=== PATIENT | female | born 1985 | race Asian ===

== ENCOUNTER 2017-12-17 10:00 | Observation (INO) | payer OTHER | END 2017-12-17 11:30 | disposition home or self-care (01) | LOC: SPU 10:00 | PROVIDERS: ADMIT Obstetrics & Gynecology; ATTEND Obstetrics & Gynecology | DX: O26.852 Spotting complicating pregnancy, second trimester (principal); O26.892 Other specified pregnancy related conditions, second trimester; R10.9 Unspecified abdominal pain; Z3A.23 23 weeks gestation of pregnancy | CPT/HCPCS: G0378 ==

== ENCOUNTER 2018-04-04 15:17 | Inpatient (IN) | payer OTHER ==
[~2018-04-04] VITALS: Ht 160 cm; Wt 95.3 kg
[2018-04-05] MEDS ORDERED: LR 1,000 ML IV ONE (00:27)
[2018-04-05] MEDS ORDERED: TERBUTALINE SULFATE 1 MG/ML VIAL SUBCUT ONE (00:30)
[2018-04-05] MEDS ORDERED: NALBUPHINE HCL 10 MG/ML AMP IVP PRN (00:30)
[2018-04-05] MEDS ORDERED: DINOPROSTONE 10 MG SUPP VG ONE (00:30)
[2018-04-05] MEDS: LR 1,000 ML IV SCH ×2 (00:45→07:29)
[2018-04-05 00:46] VITALS: BP_SYST 121
[2018-04-05 01:11] LABS: BASOPHILS % (AUTO) 0.2 % (0.0-2.0); EOSINOPHILS # (AUTO) 0.1 K/uL (0.0-0.4); EOSINOPHILS % (AUTO) 1.8 % (0.0-4.0); HEMATOCRIT 36.4 % (36-48); HEMOGLOBIN 12.5 g/dL (12.0-16.0); LYMPHOCYTES # (AUTO) 1.4 K/uL (1.0-5.5); LYMPHOCYTES % (AUTO) 19.1 % (20.5-51.5); MEAN CORPUSCULAR HEMOGLOBIN 29 pg (27-31); MEAN CORPUSCULAR HGB CONC 34 % (32-36); MEAN CORPUSCULAR VOLUME 83 fL (79.0-98.0); MONOCYTES # (AUTO) 0.7 K/uL (0.0-1.0); MONOCYTES % (AUTO) 10.2 % (1.7-9.3); NEUTROPHILS % (AUTO) 68.7 % (40.0-70.0); PLATELET COUNT (AUTO) 257 K/uL (130-430); RED BLOOD CELL COUNT(AUTO) 4.37 MIL/uL (4.2-6.2); RED CELL DISTRIBUTION WIDTH 12.8 % (9.0-15.0); WHITE BLOOD COUNT (AUTO) 7.2 K/uL (4.8-10.8)
[2018-04-05] MEDS ORDERED: MISOPROSTOL 100 MCG TABLET (CYTOTEC) VG PRN (12:15)
[2018-04-06] MEDS: LR 1,000 ML IV SCH ×2 (00:27→14:39)
[2018-04-06] MEDS: OXYTOCIN/0.9 % SODIUM CHLORIDE 1,000 ML IV SCH ×2 (00:48→23:21)
[2018-04-06] MEDS ORDERED: fentaNYL CITRATE/PF 100 MCG/2 ML AMP ONE (16:27)
[2018-04-06] MEDS ORDERED: ROPIVACAINE 0.2% 100 ML ONE (16:28)
[2018-04-06] MEDS ORDERED: LR 500 ML IV ONE (18:02)
[2018-04-06] MEDS ORDERED: fentaNYL CITRATE/PF 100 MCG/2 ML AMP EP ONE (18:15)
[2018-04-06] MEDS ORDERED: ePHEDrine sulfate 50 MG/ML VIAL IVP PRN (18:15)
[2018-04-06] MEDS ORDERED: FENT2mCg/mL-ROPIVA0.2%/NS EPID 100 ML EP SCH (18:15)
[2018-04-06] MEDS: CLINDAMYCIN 900 MG in D5W 100 ML IV SCH (20:50)
[2018-04-06] MEDS: ACETAMINOPHEN 325 MG TABLET PO PRN ×2 (20:52→23:01)
[2018-04-07] MEDS ORDERED: ROPIVACAINE 0.2% 100 ML ONE (01:34)
[2018-04-07] MEDS ORDERED: ROPIVACAINE 0.2% 100 ML EPI ONE (02:00)
[2018-04-07] MEDS: LR 1,000 ML IV SCH ×2 (04:02→22:16)
[2018-04-07] MEDS: CLINDAMYCIN 900 MG in D5W 100 ML IV SCH (04:04)
[2018-04-07] MEDS ORDERED: CLINDAMYCIN 900 mg/50mL D5W 50 ML IV ONE (08:09)
[2018-04-07] MEDS ORDERED: NALBUPHINE HCL 10 MG/ML AMP IVP PRN (08:15)
[2018-04-07] MEDS ORDERED: NALOXONE HCL 0.4 MG/ML AMP (NARCAN) IVP PRN ×2 (08:15)
[2018-04-07] MEDS ORDERED: ONDANSETRON HCL 4 MG/2 ML VIAL IVP PRN (08:15)
[2018-04-07] MEDS ORDERED: KETOROLAC TROMETHAMINE 60 MG/2 ML VIAL IM PRN (08:15)
[2018-04-07] MEDS ORDERED: MORPHINE SULFATE 10MG/10ML PF AMP EP SCH (08:15)
[2018-04-07] MEDS ORDERED: DIPHENHYDRAMINE INJ 50 MG/ML VIAL IVP PRN (08:15)
[2018-04-07] MEDS ORDERED: fentaNYL CITRATE/PF 100 MCG/2 ML AMP IVP PRN ×2 (08:15)
[2018-04-07] MEDS ORDERED: OXYTOCIN/0.9 % SODIUM CHLORIDE 1,000 ML IV ONE (09:03)
[2018-04-07] MEDS ORDERED: LR 1,000 ML IV SCH (09:03)
[2018-04-07] MEDS ORDERED: DIPH-TET-PERTUS Vaccine 0.5 ML VIAL (ADACEL) I.M. PRN (09:15)
[2018-04-07] MEDS ORDERED: SENNOSIDES/DOCUSATE SODIUM 1 TAB TABLET(SENOKOT-S) PO PRN (09:15)
[2018-04-07] MEDS ORDERED: SIMETHICONE 80 MG TAB.CHEW PO PRN (09:15)
[2018-04-07] MEDS ORDERED: RHO(D) IMMUNE GLOBULIN/MALTOSE 1500 UNITS/1.3 ML (WINHRO) IM PRN (09:15)
[2018-04-07] MEDS ORDERED: LANOLIN 7 GM OINT. TP PRN (09:15)
[2018-04-07] MEDS ORDERED: DOCUSATE SODIUM 100 MG CAPSULE PO PRN (09:15)
[2018-04-07] MEDS ORDERED: ACETAMINOPHEN 325 MG TABLET PO PRN (09:15)
[2018-04-07] MEDS ORDERED: OXYCODONE/ACETAMINOPHEN 5-325 TABLET PO PRN ×2 (09:15)
[2018-04-07] MEDS ORDERED: MEASLES,MUMPS&RUBELLA VACC/PF 12500 UNIT/0.5 ML VIAL SUBQ PRN (09:15)
[2018-04-07] MEDS ORDERED: BISACODYL 10 MG/SUPPOSITORY RC PRN (09:15)
[2018-04-07] MEDS ORDERED: ANUSOL 1 EA SUPP.RECT (PREPARATION H) RC PRN (09:15)
[2018-04-07 09:29] VITALS: BP_SYST 118
[2018-04-07] MEDS ORDERED: CLINDAMYCIN 600 mg/50mL D5W 50 ML IV SCH (10:00)
[2018-04-07] MEDS ORDERED: ROPIVACAINE 40 MG/20 ML AMP EP ONE (10:19)
[2018-04-07] MEDS: CLINDAMYCIN 900 mg/50mL D5W 50 ML IV SCH (16:00)
[2018-04-07] MEDS ORDERED: TEMAZEPAM 15 MG CAPSULE PO PRN (21:00)
[2018-04-08] MEDS: IBUPROFEN 600 MG TABLET PO SCH ×4 (00:02→18:07)
[2018-04-08] MEDS: CLINDAMYCIN 900 mg/50mL D5W 50 ML IV SCH (00:03)
[2018-04-08 07:14] LABS: HEMATOCRIT 33.4 % (36-48); HEMOGLOBIN 11.1 g/dL (12.0-16.0); MEAN CORPUSCULAR HEMOGLOBIN 28 pg (27-31); MEAN CORPUSCULAR HGB CONC 33 % (32-36); MEAN CORPUSCULAR VOLUME 85 fL (79.0-98.0); RED BLOOD CELL COUNT(AUTO) 3.93 MIL/uL (4.2-6.2); WHITE BLOOD COUNT (AUTO) 11.3 K/uL (4.8-10.8)
[2018-04-08 07:15] LABS: BASOPHILS % (AUTO) 0.1 % (0.0-2.0); EOSINOPHILS # (AUTO) 0.2 K/uL (0.0-0.4); EOSINOPHILS % (AUTO) 1.6 % (0.0-4.0); LYMPHOCYTES # (AUTO) 1.2 K/uL (1.0-5.5); LYMPHOCYTES % (AUTO) 10.5 % (20.5-51.5); MONOCYTES # (AUTO) 1.3 K/uL (0.0-1.0); MONOCYTES % (AUTO) 11.1 % (1.7-9.3); NEUTROPHILS # (AUTO) 8.6 K/uL (1.8-7.7); NEUTROPHILS % (AUTO) 76.7 % (40.0-70.0); PLATELET COUNT (AUTO) 239 K/uL (130-430); RED CELL DISTRIBUTION WIDTH 13.2 % (9.0-15.0)
[2018-04-09] MEDS: IBUPROFEN 600 MG TABLET PO SCH ×3 (00:37→14:30)
== END 2018-04-09 14:40 | disposition home or self-care (01) | DRG 786 ==
LOC: SPU 23:57
PROVIDERS: ADMIT Obstetrics & Gynecology; ATTEND Obstetrics & Gynecology
PROC: 10D00Z1 Extraction of Products of Conception, Low, Open Approach (ICD-10-PCS; principal; 2018-04-04)
PROC: 3E0P7VZ Introduction of Hormone into Female Reproductive, Via Natural or Artificial Opening (ICD-10-PCS; 2018-04-04)
PROC: 3E033VJ Introduction of Other Hormone into Peripheral Vein, Percutaneous Approach (ICD-10-PCS; 2018-04-04)
PROC: 10907ZC Drainage of Amniotic Fluid, Therapeutic from Products of Conception, Via Natural or Artificial Opening (ICD-10-PCS; 2018-04-04)
DX: O69.81X0 Labor and delivery complicated by cord around neck, without compression, not applicable or unspecified (principal); O41.1230 Chorioamnionitis, third trimester, not applicable or unspecified; O61.9 Failed induction of labor, unspecified; Z37.0 Single live birth; Z3A.39 39 weeks gestation of pregnancy
CPT/HCPCS: 36415; 85025; 86886; 86900; 86901; J2300; J2590; J2795; J3010; J3490; J7060; J7120